=== PATIENT | female | born 1980 | race Caucasian/White ===

== ENCOUNTER → 2019-03-25 | Outpatient (CLI) | payer MEDICAID ==
--- NOTE | 2019-03-25 10:02 | Diagnostic Imaging Report ---
INDICATION: Right foot pain AP, oblique, and lateral views of the right foot are obtained. No fracture or acute bony abnormality is seen. IMPRESSION: Negative right foot. Dictated by: Dictated on workstation # [id number]
== END ==
LOC: RAD FS 09:46
PROVIDERS: ATTEND Nurse Practitioner Family
DX: S99.921A Unspecified injury of right foot, initial encounter (principal)
CPT/HCPCS: 73630

== ENCOUNTER → 2019-04-15 | Outpatient (CLI) | payer MEDICAID ==
--- NOTE | 2019-04-15 08:55 | Diagnostic Imaging Report ---
EXAMINATION: Right foot at 8:44 AM. INDICATION: Foot pain. TECHNIQUE: Three views of the right foot were obtained. FINDINGS: The recent right foot exam of 03/25/2019 failed to show any sign of an acute bony abnormality. On this study, there is still no fracture, dislocation, or acute bony abnormality evident; however, on the AP view, there is a linear lucency extending obliquely through the shaft of the distal phalanx of the great toe. This finding cannot be identified with certainty on the other two projections and may merely be secondary to superimposition. The possibility that there is a nondisplaced fracture in this area should still be considered. Clinical followup is recommended. The Lisfranc joint is well maintained. The soft tissues are unremarkable. IMPRESSION: 1. The linear lucency extending through the shaft of the distal phalanx of the great toe seen only on the AP view is of uncertain etiology. Considerations and recommendations as above. 2. There is no acute bony abnormality noted otherwise. Dictated by: Dictated on workstation # [id number]
== END ==
LOC: RAD FS 08:34
PROVIDERS: ATTEND Nurse Practitioner
DX: M79.671 Pain in right foot (principal)
CPT/HCPCS: 73630